=== PATIENT | male | born 1970 | race Caucasian/White ===

== ENCOUNTER 2023-11-28 09:52 | Emergency (ER) | payer OTHER ==
[2023-11-28 10:30] LABS: BASOPHILS % (AUTO) 0.4 %; EOSINOPHILS # (AUTO) 0.3 10^3/uL (0.0-0.7); EOSINOPHILS % (AUTO) 2.5 %; HCT - HEMATOCRIT 45.1 % (42.0-52.0); HGB - HEMOGLOBIN 15.5 g/dL (14.0-18.0); LYMPHOCYTES # (AUTO) 1.4 10^3/uL (1.5-3.5); LYMPHOCYTES % (AUTO) 13.8 %; MEAN CORPUSCULAR HEMOGLOBIN 29.9 pg (27.0-31.0); MEAN CORPUSCULAR HGB CONC 34.4 g/dL (32.0-36.0); MEAN CORPUSCULAR VOLUME 87.1 fL (80.0-94.0); MEAN PLATELET VOLUME 11.1 fL (7.4-11.4); MONOCYTES # (AUTO) 0.8 10^3/uL (0.0-1.0); MONOCYTES % (AUTO) 7.5 %; NEUTROPHILS # (AUTO) 7.9 10^3/uL (1.5-6.6); NEUTROPHILS % (AUTO) 75.5 %; PLT - PLATELET COUNT 256 10^3/uL (130-450); RED BLOOD COUNT 5.18 10^6/uL (4.70-6.10); RED CELL DISTRIBUTION WIDTH 12.7 % (12.0-15.0); WHITE BLOOD COUNT 10.4 x10^3/uL (4.8-10.8)
[2023-11-28 10:46] LABS: ALBUMIN 4.5 g/dL (3.2-5.5); ALBUMIN/GLOBULIN RATIO 1.7 (1.0-2.2); CREATININE 0.9 mg/dL (0.6-1.3); POTASSIUM 2.9 mmol/L (3.5-4.5); TOTAL PROTEIN 7.1 g/dL (6.4-8.9)
--- NOTE | 2023-11-28 10:54 | ED Physician Documentation ---
PD HPI ABD PAIN - Stated complaint Stated Complaint: UPPER ABD PX,N/V,REYES - Chief complaint Chief Complaint: Abd Pain - History obtained from History obtained from: Patient - History of Present Illness Timing - onset: How many days ago (3) Timing - duration: Days (3) Timing - details: Gradual onset, Still present, Waxing and waning Quality: Cramping, Aching, Pain Location: Epigastric Radiation: No: Chest, Lower back, Upper back Improved by: No: Vomiting Worsened by: Eating Associated symptoms: Nausea, Vomiting, Diarrhea (multiple loose to watery without melena.). No: Fever, Constipation Similar symptoms before: Has not had sx before Review of Systems Constitutional: denies: Fever, Chills Nose: reports: Rhinorrhea / runny nose (last week), Congestion (last week) Throat: denies: Sore throat Respiratory: reports: Cough (mild last week, improving.) GI: reports: Abdominal Pain, Nausea, Vomiting, Diarrhea. denies: Abdominal Swelling PD PAST MEDICAL HISTORY - Past Medical History Past Medical History: Yes Cardiovascular: Hypertension, Atrial fibrillation, Other GI: Other (no history of GB nor pancreatic problems. No regular alcohol use. Elevated cholesterol mildly but normal triglycerides. ) Other Past Medical History: SVT - Past Surgical History Past Surgical History: Yes Ortho: Other - Present Medications Home Medications: Ambulatory Orders Medication Instructions Recorded Confirmed HYDROcod/ACETAM 5/325 [[place] 5/325] 1 ea PO Q6H PRN #18 tablet 11/28/23 Ondansetron Odt [Zofran] 4 mg TL Q6H PRN #10 tablet 11/28/23 Pantoprazole [Protonix] 40 mg PO DAILY 30 Days #30 tablet 11/28/23 Promethazine [Phenergan] 25 mg PO Q6H PRN #20 tab 11/28/23 Sucralfate [Carafate] 1 gm PO ACHS 5 Days #200 ml 11/28/23 - Allergies Allergies/Adverse Reactions: Allergies Allergy/AdvReac Type Severity Reaction Status Date / Time diltiazem [From Cardizem] Allergy Anxiety Verified 11/28/23 10:12 metoprolol [From Lopressor] Allergy Anxiety Verified 11/28/23 10:12 Penicillins Allergy Hives Verified 11/28/23 10:11 tramadol Allergy Unknown Verified 11/28/23 10:13 - Social History Does the pt smoke?: No Smoking Status: Never smoker Does the pt drink ETOH?: No Does the pt have substance abuse?: No - Immunizations Immunizations are current?: Yes - POLST Patient has POLST: No PD ED PE NORMAL - Vitals Vital signs reviewed: Yes - General General: Alert and oriented X 3, Well developed/nourished, Other (appears in pain.) - Neck Neck: Supple, no meningeal sign, No adenopathy - Cardiac Cardiac: RRR, No murmur - Respiratory Respiratory: No respiratory distress, Clear bilaterally - Abdomen Abdomen: Normal bowel sounds, Soft, Non distended, No organomegaly, Other (moderately tender epigastric to supraumbilical area with local guarding but no percussion nor rebound tenderness. No rash nor sores. ) - Rectal Rectal: Deferred - Back Back: No CVA TTP - Derm Derm: Normal color, Warm and dry, No rash - Neuro Neuro: Alert and oriented X 3, No motor deficit, Normal speech Results - Vitals Vitals: Vital Signs - 24 hr 11/28/23 11/28/23 12:11 14:36 Heart Rate 72 80 Respiratory 18 18 Rate Blood Pressure 146/100 H 153/102 H O2 Saturation 98 95 Oxygen O2 Source Room air - Labs Labs: Laboratory Tests 11/28/23 11/28/23 11/28/23 10:26 10:26 10:27 WBC 10.4 RBC 5.18 Hgb 15.5 Hct 45.1 MCV 87.1 MCH 29.9 MCHC 34.4 RDW 12.7 Plt Count 256 MPV 11.1 Neut # (Auto) 7.9 H Lymph # (Auto) 1.4 L [place] # (Auto) 0.8 Eos # (Auto) 0.3 Baso # (Auto) 0.0 Absolute Nucleated RBC 0.00 Nucleated RBC % 0.0 Sodium 137 Potassium 2.9 L Chloride 96 L Carbon Dioxide 29 Anion Gap 12.0 BUN 10 Creatinine 0.9 Estimated GFR (MDRD) 89 Glucose 153 H Calcium 10.0 Magnesium 1.3 L Total Bilirubin 1.0 AST 14 ALT 39 Alkaline Phosphatase 67 Total Protein 7.1 Albumin 4.5 Globulin 2.6 Albumin/Globulin Ratio 1.7 Lipase 116 H Urine Color Urine Clarity Urine pH Ur Specific [place] Urine Protein Urine Glucose (UA) Urine Ketones Urine Occult Blood Urine Nitrite Urine Bilirubin Urine Urobilinogen Ur Leukocyte Esterase Ur Microscopic Review Urine Culture Comments 11/28/23 13:12 WBC RBC Hgb Hct MCV MCH MCHC RDW Plt Count MPV Neut # (Auto) Lymph # (Auto) [place] # (Auto) Eos # (Auto) Baso # (Auto) Absolute Nucleated RBC Nucleated RBC % Sodium Potassium Chloride Carbon Dioxide Anion Gap BUN Creatinine Estimated GFR (MDRD) Glucose Calcium Magnesium Total Bilirubin AST ALT Alkaline Phosphatase Total Protein Albumin Globulin Albumin/Globulin Ratio Lipase Urine Color YELLOW Urine Clarity CLEAR Urine pH 8.0 H Ur Specific [place] 1.010 Urine Protein NEGATIVE Urine Glucose (UA) NEGATIVE Urine Ketones NEGATIVE Urine Occult Blood TRACE-INTA Urine Nitrite NEGATIVE Urine Bilirubin NEGATIVE Urine Urobilinogen 0.2 (NORMAL) Ur Leukocyte Esterase NEGATIVE Ur Microscopic Review NOT INDICATED Urine Culture Comments NOT INDICATED - Rads (name of study) abd/pelvic cT Relevant Findings:: Prelim report reviewed (deuodenitis locally with adjacent inflammation of pancreas that is in contact. No general apncreatic changes noted. GB appears okay.) PD Medical Decision Making - ED course Complexity details: reviewed results (lipase slightly elevated but not degree I would expect for degree of pain. Also no history of pancreatic process. Shared deicsion for CT scan which is showing duodenitis with apparent contact irritation of end of pancreas. This would be more in line with viral GE type symptoms then duodenal inflam.), re-evaluated patient (h e is feeling improved with IV fludis and meds for nausea and pain. He feels stable and improved for discahrge home.), considered differential (upper abd pain localized and worsening. Started with N/V/D that sounds like viral GE. Given local pain and tender, cang et CT to eval. Will give IV fluids, antinauseant and some pain m eds. Check labs for lipase and LFTs, WBC. ), d/w patient Departure - Departure Disposition: 01 Home, Self Care Clinical Impression: Duodenitis, Gastroenteritis, acute, Nausea vomiting and diarrhea, Acute upper abdominal pain, Hypokalemia, Hypomagnesemia Condition: Stable Record reviewed to determine appropriate education?: Yes Instructions: ED Gastritis Follow-Up: Jones Garcia DO [Primary Care Provider] - Prescriptions: Sucralfate [Carafate] 1 gm PO ACHS 5 Days #200 ml HYDROcod/ACETAM 5/325 [[place] 5/325] 1 ea PO Q6H PRN #18 tablet PRN Reason: Pain Promethazine [Phenergan] 25 mg PO Q6H PRN #20 tab PRN Reason: Nausea / Vomiting Pantoprazole [Protonix] 40 mg PO DAILY 30 Days #30 tablet Ondansetron Odt [Zofran] 4 mg TL Q6H PRN #10 tablet PRN Reason: Nausea / Vomiting Comments: Your blood test shows slight elevation of the lipase which is a pancreas marker. However on CT scan it looked more like inflammation of the duodenum which is the initial part of the intestine out of the stomach and it was just adjacent to the pancreas causing local contact inflammation. This would fit more with your symptoms of the nausea and vomiting and diarrhea and sounds like a most likely of viral stomach flu with subsequent localized inflammation in the duodenum. This will get treated like an irritated stomach and no doubt your stomach is irritated to. Would use a combination of acid reducing medicines for the next several weeks while gives an opportunity for good healing. Also in the short- term to coat the stomach and duodenum with sacral fate which is likely stickier type antacid. Avoid irritants for the stomach and duodenum such as NSAIDs, alcohol, caffeine, spicy foods. [place] food mainly and soft liquid diet for the first couple of d ays. Tylenol 500 to 650 mg 4 times daily regularly for the next several days to week. To that add hydrocodone/acetaminophen if needed for worse pain. I also prescribed to antinauseants ondansetron and Phenergan to help with symptoms as needed. Your potassium and magnesium levels were low. This should improve as your diet improves back to more normal and would be low because of the fluid losses with the vomiting and diarrhea. You could take a supplements or just go with foods rich with these electrolytes. I sent your prescriptions to your preferred pharmacy. Rest off work for couple of days while this is improving. Recheck if not improved completely 11 next few days and resolved by 3 to 5 days. Return if worse. I am prescribing a short course of narcotic pain medication for you. These are potentially dangerous and addictive medications that should be used carefully. These medications may constipate you. Take an [id number] stool softener such as docusate twice daily with plenty of water while taking these medications. If you go 24 hours without a bowel movement, take [id number] MiraLAX, per package instructions. Do not drink or drive while taking these medications. If you received narcotic or sedating medications while in the emergency department do not drive for 24 hours. Store this medication in a safe, secure place and out of reach of children. It is a violation of federal law to give or sell this medication to another person or to use in a manner other than prescribed. The ED will not refill narcotic prescriptions, including prescriptions lost or stolen. You can dispose of unwanted medications at the [facility] office or at several pharmacies such as [email or web address]. Forms: PCP List Discharge Date/Time: 11/28/23 14:37
[2023-11-28] MEDS: HYDROmorphone 1 MG/ML CARPUJECT IVP STA ×2 (11:36→14:18)
[2023-11-28] MEDS: FAMOTIDINE 20 MG/2 ML VIAL IVP STA (11:36)
[2023-11-28] MEDS: DROPERIDOL 5 MG/2 ML VIAL IVP STA (11:36)
[2023-11-28] MEDS: SODIUM CHLORIDE 0.9% 1,000 ML IV STA (11:36)
[2023-11-28] MEDS ORDERED: iohexoL-300 100 ML VIAL ONE (11:45)
[2023-11-28] MEDS: POTASSIUM CHLOR 10 MEQ/100 ML 10 MEQ/100 ML BAG IV ONE (11:50)
[2023-11-28] MEDS: POTASSIUM BICARB 25 MEQ TABLET PO STA (12:48)
--- NOTE | 2023-11-28 13:01 | CT Report ---
PROCEDURE: Abdomen/Pelvis W INDICATIONS: upper abd pain/ vomiting CONTRAST: IV Omnipaque 300 100ml TECHNIQUE: After the administration of intravenous contrast, a CT scan of the abdomen and pelvis was performed. Images were recorded and evaluated at appropriate window settings. Reformats: coronal and sagittal. F or radiation dose reduction, the following was used: automated exposure control, adjustment of mA and /or kV according to patient size. COMPARISON: None. FINDINGS: Image quality: Diagnostic. Lower chest: Unremarkable. Liver: No solid mass. Mild, diffuse fatty infiltration of the liver. Gallbladder and biliary tree: Partially calcified gallstones without gallbladder wall thickening or p ericholecystic edema. Biliary system is nondilated. Spleen: No splenomegaly. Pancreas: No pancreatic ductal dilation. Mild inflammatory changes noted adjacent to the pancreatic u ncinate process and adjacent to the third portion of the duodenum. Pancreas demonstrates normal postc ontrast enhancement. Adrenals: No adrenal nodule. Kidneys and ureters: No hydronephrosis. No renal cystic lesion which requires follow up. No solid mas s. Stomach, bowel and peritoneum: No bowel distension. No pathologic free fluid. The appendix is normal. Lymph nodes: No central or retroperitoneal adenopathy. Vessels: No infrarenal aortic aneurysm. PELVIS Reproductive organs: Unremarkable. Bladder: No abnormal wall thickening, accounting for underdistention. Pelvic lymph nodes: No pelvic adenopathy by size criteria. Bones: No aggressive osseous abnormality. Spine degenerative disc disease and facet arthropathy are n oted. Other: No significant ventral hernia. Small fat-containing right inguinal hernia. IMPRESSION: Mild inflammatory changes adjacent to the duodenum and the pancreatic uncinate process which could re flect paraduodenal pancreatitis or duodenitis. Recommend correlation with clinical and laboratory karena a. Cholelithiasis. Hepatic steatosis. Reviewed by: Leidy Barron MD, PhD on 11/28/2023 1:00 PM PDT Approved by: Leidy Barron MD, PhD on 11/28/2023 1:00 PM PDT Station ID: [id number]
[2023-11-28 13:17] LABS: BILIRUBIN,URINE NEGATIVE (NEGATIVE); GLUCOSE, URINE (UA) NEGATIVE (NEGATIVE); KETONES,URINE (UA) NEGATIVE (NEGATIVE); LEUKOCYTE ESTERASE, URINE NEGATIVE (NEGATIVE); NITRITE,URINE NEGATIVE (NEGATIVE); OCCULT BLOOD,URINE TRACE-INTA (NEGATIVE); PROTEIN,URINE NEGATIVE (NEGATIVE); UROBILINOGEN,URINE 0.2 (NORMAL) E.U./dL (NORMAL)
[2023-11-28] MEDS: iohexoL-300 100 ML VIAL IVP ONE (13:20)
[2023-11-28 13:34] LABS: CLARITY,URINE CLEAR (CLEAR)
[2023-11-28] MEDS: SUCRALFATE 1 GM/10 ML UDC PO STA (14:17)
[2023-11-28] MEDS: MAGNESIUM OXIDE 400 MG TABLET PO STA (14:18)
[2023-11-28 14:40] VITALS: BP 153/102; O2SAT 95
== END 2023-11-28 14:37 | disposition home or self-care (01) ==
LOC: ED 09:52
DX: K29.80 Duodenitis without bleeding (principal); K52.9 Noninfective gastroenteritis and colitis, unspecified; E87.6 Hypokalemia; E83.42 Hypomagnesemia
CPT/HCPCS: 36415; 74177; 80053; 81003; 83690; 83735; 85025; 93005; 96361; 96374; 99284; A9270; J1170; Q9967; 81001; 87086